=== PATIENT | male | born 1975 | race Caucasian/White ===

== ENCOUNTER 2023-10-11 08:26 | Emergency (ER) | payer OTHER, SELFPAY ==
[2023-10-11 08:41] VITALS: BP 139/83; PULSE 95; RESP 20; TEMP 37.1; O2SAT 96; BMI 38.0
--- NOTE | 2023-10-11 09:31 | ED.GENADULT ---
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 He washed his hands well. He is up-to-date on other immunizations by his report. He was wondering about any needed treatment for this. Again the implement had not been used for list least 6 weeks by his report of the evidence area. He denies redness or erythema to the area. He took no other medications. He is generally healthy, other than being on metformin and blood pressure pills. Related Data Home Medications ?Medication ?Instructions ?Recorded ?Confirmed amlodipine 5 mg tablet 5 mg PO DAILY 10/11/23 10/11/23 lisinopril 20 1 tab PO DAILY 10/11/23 10/11/23 mg-hydrochlorothiazide 12.5 mg tablet (Zestoretic) metformin 500 mg tablet 1,000 mg PO BID 10/11/23 10/11/23 phentermine 37.5 mg capsule 37.5 mg PO DAILY 10/11/23 10/11/23 Allergies Allergy/AdvReac Type Severity Reaction Status Date / Time No Known Drug Allergies Allergy Verified 10/11/23 08:49 Review of Systems Status of ROS: Reports: 6 or more systems reviewed and unremarkable except as noted in History and below PFSH PFSH Social History Smoking Status: Never smoker How often do you have a drink containing alcohol: never AUDIT-C Alcohol total score: 0 Non-prescribed substance use: denies use Exam Narrative: Exam Narrative: Objective: Afebrile His right ring finger where he was poked on the lateral aspect of his distal finger pad shows no warmth erythema or sign of injury. Range of motion is normal Const: Vital Signs, click to edit/add: Vital Signs - 24 hr 10/11/23 08:41 10/11/23 11:00 10/11/23 11:04 Temperature 98.8 F 97.5 F L 97.5 F L Pulse Rate [Pulse Oximeter] 95 93 93 Respiratory Rate 20 20 20 Blood Pressure [Ri ght Upper Arm] 139/83 138/91 H 138/91 H Pulse Oximetry 96 97 Oxygen Delivery Me thod Room Air Room Air Course Vital Signs Vital signs: Initial Vital Signs Temperature 98.8 F 10/11/23 08:41 Temperature Source Temporal Artery Scan 10/11/23 08:41 Pulse Rate 95 10/11/23 08:41 Respiratory Rate 20 10/11/23 08:41 Blood Pressure 139/83 10/11/23 08:41 Blood Pressure Mean 101 10/11/23 08:41 Blood Pressure Position Sitting 10/11/23 08:41 Pulse Oximetry 96 10/11/23 08:41 Oxygen Delivery Method Room Air 10/11/23 08:41 Vital Signs Temperature 98.8 F 10/11/23 08:41 Pulse Rate 95 10/11/23 08:41 Respiratory Rate 20 10/11/23 08:41 Blood Pressure 139/83 10/11/23 08:41 Pulse Oximetry 96 10/11/23 08:41 Oxygen Delivery Method Room Air 10/11/23 08:41 Temperature 97.5 F L 10/11/23 11:04 Pulse Rate 93 10/11/23 11:04 Respiratory Rate 20 10/11/23 11:04 Blood Pressure 138/91 H 10/11/23 11:04 Pulse Oximetry 97 10/11/23 11:00 Oxygen Delivery Method Room Air 10/11/23 11:00 Medical Decision Making MDM Narrative Medical decision making narrative: 48-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 I think at this point be reasonable to consult with the post exposure prophylaxis hotline and get recommendations that are up-to-date. See nursing staff will do that. Disposition pending their findings. Addendum 10:45 a.m.: The patient reports that he has updated immunizations as of within the last few months. 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 He had his case discussed with the post exposure prophylaxis hotline, and they suggest that his risk of any infection is less than half a%. At this level and with potential side effects, and with mutual decision making he elected to not pursue any post exposure prophylaxis medications. Would get baseline hepatitis CB and HIV testing, and we I would recommend he repeat that in 3-6 months at his regular clinic with his [facility] a doctor. I wrote him a note for off work today and he can return tomorrow without restriction. He can return if any problems or concerns. There is no evidence of infection is finger. He is up-to-date on immunizations as mention. Lab Data Labs: Lab Results 10/11/23 Range/Units 10:43 Hep Bs Antigen Negative (Negative) Hep Bs Antibody Positive A (Negative) Hepatitis C Antibody Negative (Negative) HIV 1&2 Ab/P24 Ag 4thGn Negative (Negative) Discharge Plan Discharge Clinical Impression: Needlestick injury accident Patient Disposition: Home, Self-Care Condition: Stable Additional Instructions: Off work today, would recommend he that he can return tomorrow without restriction. Would repeat lab studies in 3-6 months. Activity Level: Light activity Discharge Diet: Regular Prescriptions: No Action metformin 500 mg tablet 1,000 mg PO BID phentermine 37.5 mg capsule 37.5 mg PO DAILY Rx Instructions: must administer 30 minutes before or 1-2 hours after breakfast amlodipine 5 mg tablet 5 mg PO DAILY lisinopril-hydrochlorothiazide [Zestoretic] 20-12.5 mg tablet 1 tab PO DAILY Stand Alone Forms: [employer] Info Instructions
[2023-10-11 11:00] VITALS: BP 138/91; PULSE 93; RESP 20; TEMP 36.4; O2SAT 97
[2023-10-11 11:04] VITALS: BP 138/91; PULSE 93; RESP 20; TEMP 36.4
[2023-10-11 11:57] LABS: HIV 1/2/P24 Combo Screen* Negative (Negative)
[2023-10-11 12:04] LABS: Hepatitis B Surface Antigen* Negative (Negative)
[2023-10-11 12:22] LABS: Hepatitis C Virus Antibody* Negative (Negative)
[2023-10-11 12:23] LABS: Hepatitis B Surface Antibody* Positive (Negative)
[2023-10-12 18:03] LABS: Hepatitis B Core Antibody, IgM Negative (Negative)
== END 2023-10-11 11:05 | disposition home or self-care (01) ==
PROVIDERS: Emergency Provider Family Medicine
DX: S61.234A Puncture wound without foreign body of right ring finger without damage to nail, initial encounter (principal); W46.0XXA Contact with hypodermic needle, initial encounter
CPT/HCPCS: 36415; 86703; 86705; 86706; 86803; 87340; 99282; 99284